=== PATIENT | male | born 1985 | race Caucasian/White ===

== ENCOUNTER → 2020-01-01 | Day surgery (SDC) | payer BC ==
[~2020-01-01] MED LIST: ACETAMINOPHEN 1000 MG/100 ML 100 ML IV ONE; DEXAMETHASONE SOD PHOS INJ 4 MG/ML VIAL ONE; HYDROMORPHONE 1MG/1ML INJ ONE; KETOROLAC TROMETHAMINE 30 MG/ML VIAL ONE; LIDOCAINE HCL 2% LOCAL INJ 5 ML SDV VIAL INJ ONE; ONDANSETRON HCL INJ 2MG/ML 2ML 2 MG/ML VIAL ONE; PROPOFOL IV EMULSION 10 MG/ML 20 ML VIAL ONE; ROCURONIUM BROMIDE 10 MG/ML 5ML VIAL IV ONE; SEVOFLURANE INHAL SOLN 250 ML PEN BTL ONE; TALTZ SYRI80 MG/1 ML INJ
[2020-01-01 13:31] LABS: BASOPHILS # (AUTO) 0.1 (0.0-0.1); EOSINOPHILS # (AUTO) 0.2 (0.0-0.4); EOSINOPHILS % 2.5 % (0.0-6.0); HEMOGLOBIN 15.3 g/dL (14.0-18.0); LYMPHOCYTES # (AUTO) 3.6 (1.0-3.2); LYMPHOCYTES % 38.5 % (18.0-39.1); MEAN CORPUSCULAR HEMOGLOBIN 30.4 pg (28-32); MEAN CORPUSCULAR VOLUME 89.3 fL (81-99); MONOCYTES # (AUTO) 0.9 (0.2-0.8); MONOCYTES % 9.5 % (4.4-11.3); NEUTROPHILS # (AUTO) 4.4 (2.1-6.9); NEUTROPHILS % 46.9 % (38.7-80.0); PLATELET COUNT 320 x10e3/uL (140-360); RED BLOOD COUNT 5.04 x10e6/uL (4.3-5.7); RED CELL DISTRIBUTION WIDTH 13.2 % (11.7-14.4)
--- NOTE | 2020-01-01 13:34 | Pre Op History & Physical ---
DATE OF SURGERY: January 01, 2020. CHIEF COMPLAINT: Mandibular fracture. HISTORY OF PRESENT ILLNESS: This 34-year-old male fell on December 18 from a ladder. The patient suffered with abrasion on his body and also he hit his face. The patient has fine nasal occlusion are normal, but painful around the right preauricular area. The patient had a CT scan of the facial bone when he went to the ER, which showed that the patient has a fracture of the neck of the mandible. REVIEW OF SYSTEMS: System review showed no recent cardiovascular, respiratory, or GI problem. PAST MEDICAL HISTORY: The patient has no significant medical problem. PAST SURGICAL HISTORY: He has previous vasectomy. ALLERGIES: HE HAS NO KNOWN ALLERGY TO MEDICATION. MEDICATIONS: He is on . SOCIAL HISTORY: He smokes about half a pack a day. He is a nondrinker. FAMILY HISTORY: Noncontributory. PHYSICAL EXAMINATION: VITAL SIGNS: The patient's vital signs were within normal limits. HEENT: Ear exam showed normal tympanic membrane bilaterally. Nasal exam showed deviated nasal septum, left side about 30% oropharynx and oral cavity show no obvious trismus. The patient occlusion is normal, but tender in the right neck of the mandible. [employer]: Exam showed supraorbital, infraorbital, inferior alveolar nerve distribution to be normal. NECK: Showed no lymph node or thyroid palpable. CHEST: Showed good air entry bilaterally. CARDIOVASCULAR: Showed S1, S2. No murmur noted. ASSESSMENT AND PLAN: Mr. Simon has right mandibular neck fracture with dislocation of the condyle. The suggested treatment is intermaxillary fixation, open reduction, internal fixation of the fracture, and other necessary procedure. The complication of procedure includes, but not limited to bleeding, infection, malocclusion, trismus, malunion, nonunion, wound breakdown, poor cosmetic result, facial nerve injury, numbness around the face, persistent recurrence of the problem. The alternative will be continue observation and intermaxillary fixation in the office setting. The patient has elected to undergo the surgical procedure. MD AURORA Lynch/KEEGAN /[id number]
[2020-01-01 13:41] LABS: INR 0.84; PARTIAL THROMBOPLASTIN TIME 27.4 seconds (23.8-35.5)
[2020-01-01 16:30] VITALS: BP 120/77
--- NOTE | 2020-01-01 18:46 | Operative Report ---
DATE OF PROCEDURE: 01/01/2020 SURGEON: Price Cullen MD CHIEF COMPLAINT: Fracture of right mandibular neck. POSTOPERATIVE DIAGNOSIS: Fracture of right mandibular neck. OPERATIVE PROCEDURE: Intermaxillary fixation of fractured mandible. ANESTHESIA: [facility]. HISTORY OF PRESENT ILLNESS: This is a 34-year-old male fell off his camper, resulted with abrasion in his body and also fractured mandible, and abrasion in his chin. Chin abrasion was closed by the ER doctor using tissue glue. CT scan of the facial bone was done, showed the patient has right neck or mandible fracture. The patient has no other facial fracture noted, it was decided that intermaxillary fixation and other necessary procedure will be beneficial for him. DESCRIPTION OF PROCEDURE: The patient was taken to the operating room, put under general anesthesia, nasally intubated. The arch bar was applied both of the mandible and maxillary teeth without any problem. These were wired in using a 22-gauge wire. After these were applied, initially a rubber band was used to create intermaxillary fixation, but these wires broke. A decision was made to use the catheter of a T-tube 20-gauge and cut into small pieces as the rubber band and this was very successful. These were applied without any problem. Intermaxillary fixation was achieved. The patient tolerated the above procedure well with minimal blood loss. Bone wax was applied along the arch bar to prevent any further abrasion. The patient was able to be transferred to recovery room in stable condition. Price Cullen MD DKH/MODL /[id number]
== END | disposition home or self-care (01) ==
LOC: OR 12:50
PROVIDERS: ATTEND Otolaryngology Otolaryngology/Facial Plastic Surgery
DX: S02.69XA Fracture of mandible of other specified site, initial encounter for closed fracture (principal); L40.9 Psoriasis, unspecified; F17.210 Nicotine dependence, cigarettes, uncomplicated; W17.89XA Other fall from one level to another, initial encounter
CPT/HCPCS: 21497; 36415; 85025; 85610; 85730; J0131; J1100; J1170; J1885; J2001; J2405; J2704